=== PATIENT | female | born 1965 | race Caucasian/White ===

== ENCOUNTER 2018-12-25 11:53 | Emergency (ER) | payer MEDICAID ==
[~2018-12-25] VITALS: Ht 162.6 cm; Wt 62.0 kg
[~2018-12-25 11:53] MED LIST: DOXY100C2 PO
[2018-12-25] MEDS ORDERED: ONDANSETRON HCL 4MG/2ML INJ IV STA (13:07)
[2018-12-25 13:17] LABS: CHLORIDE 106 mEq/L (98-107); HEMATOCRIT. 45.8 % (36.0-48.0); HEMOGLOBIN. 15.4 g/dL (12.0-16.0); MEAN CORPUSCULAR VOLUME 92.4 fL (81.0-99.0); MEAN PLATELET VOLUME 8.6 fl (7.4-10.4); PLATELET 244 x1000/uL (130-400); RED BLOOD CELL COUNT 4.96 mill/uL (4.2-5.4); RED CELL DISTRIBUTION WIDTH 13.2 % (11.6-14.6)
[2018-12-25 13:47] LABS: PLATELET ESTIMATE NORMAL
[2018-12-25 14:10] LABS: CLARITY URINE CLEAR (CLEAR); COLOR URINE YELLOW (YELLOW); KETONES URINE NEGATIVE (NEGATIVE); LEUKOCYTE ESTERASE URINE NEGATIVE (NEGATIVE); NITRITE URINE NEGATIVE (NEGATIVE); OCCULT BLOOD URINE NEGATIVE (NEGATIVE); PH URINE 7.5 (4.5-8.0); PROTEIN URINE TRACE (NEGATIVE); SPECIFIC GRAVITY URINE 1.035 (1.005-1.030)
[2018-12-25] MEDS ORDERED: MORPHINE SULFATE 4 MG/ML CPJ (NOT FOR IM USE) IV ONE (16:00)
[2018-12-25] MEDS ORDERED: IOHEXOL-300 100 ML BOTTLE ONE (16:56)
[2018-12-25 19:02] VITALS: BP 126/76
== END 2018-12-25 19:00 | disposition home or self-care (01) ==
LOC: ER 12:35
DX: R10.11 Right upper quadrant pain (principal); R10.12 Left upper quadrant pain; M54.9 Dorsalgia, unspecified; J34.89 Other specified disorders of nose and nasal sinuses; R11.2 Nausea with vomiting, unspecified; R19.7 Diarrhea, unspecified; Z87.440 Personal history of urinary (tract) infections; Z86.73 Personal history of transient ischemic attack (TIA), and cerebral infarction without residual deficits; Z90.710 Acquired absence of both cervix and uterus; Z88.6 Allergy status to analgesic agent; Z98.890 Other specified postprocedural states; Z79.899 Other long term (current) drug therapy
CPT/HCPCS: 36415; 74177; 80053; 81003; 81025; 83690; 85025; 96374; 96375; 99284; J2270; J2405; Q9967; Z7610

== ENCOUNTER 2024-11-22 18:04 | Emergency (ER) | payer MEDICAID ==
[~2024-11-22] VITALS: Ht 170.2 cm; Wt 71.0 kg
[~2024-11-22 18:04] MED LIST changes: -DOXY100C2 PO; +DOXY100C5 PO
[2024-11-22 18:11] VITALS: O2SAT 98
[2024-11-22 22:17] VITALS: BP 151/92; PULSE 109; RESP 16; TEMP 36.8; O2SAT 98
== END 2024-11-22 22:18 | disposition home or self-care (01) ==
LOC: ER 18:04
DX: Z00.8 Encounter for other general examination (principal); I10 Essential (primary) hypertension; Z90.710 Acquired absence of both cervix and uterus; Z88.6 Allergy status to analgesic agent
CPT/HCPCS: 99281

== ENCOUNTER 2025-04-27 04:33 | Emergency (ER) | payer MEDICAID ==
[~2025-04-27] VITALS: Ht 170.2 cm; Wt 73.0 kg
[2025-04-27 04:46] VITALS: O2SAT 98
[2025-04-27 05:33] VITALS: BP 147/86; PULSE 74; RESP 16; TEMP 37.1; O2SAT 98
== END 2025-04-27 05:34 | disposition home or self-care (01) ==
LOC: ER 04:53
DX: T16.1XXA Foreign body in right ear, initial encounter (principal); I10 Essential (primary) hypertension; Z90.710 Acquired absence of both cervix and uterus; Z88.6 Allergy status to analgesic agent; Z79.899 Other long term (current) drug therapy; W44.F4XA Insect entering into or through a natural orifice, initial encounter; Y93.89 Activity, other specified; Y92.89 Other specified places as the place of occurrence of the external cause; Y99.8 Other external cause status
CPT/HCPCS: 69200; 99284